=== PATIENT | female | born 1980 | race Caucasian/White ===

== ENCOUNTER 2019-12-25 09:42 | Outpatient (CLI) | payer BC ==
--- NOTE | 2019-12-25 13:45 | ULT ---
RIGHT UPPER QUADRANT ABDOMINAL ULTRASOUND: Date: 12/25/2019 HISTORY: Right upper quadrant abdominal pain. TECHNIQUE: Multiplanar Stephens scale and color Doppler images were obtained in a right upper quadrant abdominal ult rasound. FINDINGS: The liver is normal in echogenicity without focal lesions or intrahepatic ductal dilatation. The gall bladder is normal without stones, sludge, gallbladder wall thickening, or pericholecystic fluid. The common bile duct is normal measuring 4 mm. The visualized portions of the pancreas are unremarkable. The right kidney is normal in echogenicity without hydronephrosis or calculus and measures 13.5 cm in length. IMPRESSION: Unremarkable exam. POS: [facility]
== END 2019-12-25 09:43 | disposition home or self-care (01) ==
LOC: SCSULT 09:42
PROVIDERS: ATTEND Family Medicine
DX: R10.11 Right upper quadrant pain (principal)
CPT/HCPCS: 36415; 76705; 80053; 82977; 85025

== ENCOUNTER 2022-09-05 08:59 | Outpatient (CLI) | payer BC | END 2022-09-05 09:00 | disposition home or self-care (01) | LOC: SCSRAD 08:59 | PROVIDERS: ATTEND Family Medicine | DX: M53.3 Sacrococcygeal disorders, not elsewhere classified (principal) | CPT/HCPCS: 72220 ==